=== PATIENT | male | born 1970 | race Caucasian/White ===

== ENCOUNTER 2016-08-21 10:12 | Outpatient (CLI) | payer OTHER ==
--- NOTE | 2016-08-21 12:23 | Diagnostic Imaging Report ---
Indication: Low back pain x5 years Technique: Sagittal T1 fast echo, axial T1, sagittal and axial T2 FRFSE, sagittal STIR, pre-and postcontrast axial T1 fat-saturated images lumbar spine Comparison: None Findings: There is fluid within the bilateral L4-L5 facet joints. There is also fluid within the right L5-S1 facet joint. Trace fluid is seen within the bilateral L3-4 facet joints. There is fairly extensive sclerosis of the L4, L5, and S1 facets. There is prominent T2 signal seen in the soft tissues surrounding the facets in this area bilaterally, as well as marked contrast enhancement. Equivocal slight enhancement of the bilateral L5 pedicles, left greater than right is also noted, as is increased T2 and STIR within the left L5 pedicle. Tiny focus of increased T2 signal posterior to the left L4-5 facet may reflect a tiny synovial cyst The remainder of the osseous marrow signal is normal. The vertebral body heights are preserved. The bony alignment is normal. Conus medullaris terminates at the inferior L1 level. There is mild degenerative disc narrowing at L1-2. No significant disc bulge or protrusion, spinal stenosis, or neural foraminal stenosis demonstrated. At L2-3, the disc space is preserved. No significant disc bulge or protrusion. There is mild neural foraminal stenosis due to facet hypertrophy. At L3-4, L4-5, and L5-S1 no significant disc bulge or protrusion, spinal stenosis, or neural foraminal stenosis. The disc spaces are preserved at these levels. The included extraspinal soft tissues are unremarkable. Impression: Marked abnormality of the bilateral L4-5 and L5-S1 process, as described above. Extensive osseous sclerosis indicates advanced degenerative changes. There is also fluid in the bilateral L4-5 and the right L5-S1 facet joints. There is edema and enhancement of the surrounding soft tissues as well as of the bilateral L5 pedicles. Findings most likely represent advanced degenerative arthropathy, with the surrounding soft tissue abnormality likely inflammatory change related to such. Findings also represent degenerative arthropathy with superimposed acute or subacute trauma to the surrounding soft tissues. Less likely possibilities include inflammatory arthropathy, infectious spondylitis/arthritis Minimal degenerative changes, as described. No evidence of significant neural impingement
== END 2016-08-21 12:12 | disposition home or self-care (01) ==
LOC: MRI 10:12
DX: M54.5 Low back pain (principal); G95.89 Other specified diseases of spinal cord
CPT/HCPCS: 72158; A9585